=== PATIENT | male | born 1990 | race Two or more races ===

== ENCOUNTER 2020-02-02 13:03 | Emergency (ER) | payer OTHER ==
[~2020-02-02] VITALS: Ht 177.8 cm; Wt 90.7 kg
[2020-02-02 13:50] LABS: Urine Bacteria FEW /hpf (None Seen); Urine Blood Negative /uL (Negative); Urine Mucus FEW (None Seen); Urine Specific Gravity 1.023 (1.001-1.035); Urine WBC 1 /hpf (0 - 3)
[2020-02-02 14:39] LABS: Basophils # (auto) 0 10 ^3/uL (0-0.2); Basophils % (auto) 0.3 % (0.0-2.0); Eosinophils # (auto) 0 10 ^3/uL (0-0.8); Eosinophils % (auto) 0.6 % (0.0-7.0); Hematocrit 46.4 % (41.0-53.0); Hemoglobin 16.1 g/dL (13.5-17.5); Lymphocytes # (auto) 1.4 10 ^3/uL (0.4-5.4); Lymphocytes % (auto) 18.5 % (10.0-50.0); Mean Corpuscular Hgb Conc. 34.6 g/dL (32.0-36.0); Mean Corpuscular Volume 83.8 fL (80.0-100.0); Monocytes # (auto) 0.6 10 ^3/uL (0-1.3); Monocytes % (auto) 7.7 % (0.0-12.0); Neutrophils # (auto) 5.6 10 ^3/uL (1.6-8.6); Neutrophils % (auto) 72.9 % (37.0-80.0); Nucleated Red Blood Cells % 0.1 %; Platelet Count (auto) 231 10^3/uL (140-450); Red Blood Cells 5.54 10^6/uL (4.5-5.90); Red Cell Distribution Width 12.9 % (11.8-14.3); White Blood Cell 7.8 10^3/uL (4.4-10.8)
[2020-02-02 15:04] LABS: Potassium 4.5 mmol/L (3.5-5.1)
[2020-02-02 15:11] LABS: Albumin 4.2 g/dL (3.4-5.0); BUN/Creatinine Ratio 12.5; Bilirubin, Total 0.7 mg/dL (0.2-1.0); Calcium 9.3 mg/dL (8.5-10.1); Total Protein 8.4 g/dL (6.4-8.2)
[2020-02-02] MEDS ORDERED: KETOROLAC TROMETH 60MG/2ML VIAL IM ONE (15:45)
[2020-02-02] MEDS ORDERED: ONDANSETRON HCL 4 MG/2 ML VIAL IM ONE (15:45)
[2020-02-02 16:20] VITALS: BP 134/74
== END 2020-02-02 16:22 | disposition home or self-care (01) ==
LOC: ER 13:03
DX: K76.0 Fatty (change of) liver, not elsewhere classified (principal)
CPT/HCPCS: 36415; 74176; 80053; 81001; 85025; 96372; 99284; J1885; J2405